=== PATIENT | female | born 1950 ===

== ENCOUNTER 2023-05-14 14:26 | Inpatient (IN) | payer OTHER ==
[~2023-05-14] VITALS: Ht 162.6 cm; Wt 70.8 kg
[2023-05-16] MEDS ORDERED: CHILDREN'S ASPI81 MG PO (15:25)
[2023-05-16] MEDS ORDERED: ALTACE5 MG PO (15:26)
[2023-05-16] MEDS ORDERED: OMEPRAZOLE-BIC1 EAC1 PO (15:26)
[2023-05-16] MEDS ORDERED: PEPCID40 MG PO (15:26)
[2023-05-16] MEDS ORDERED: LIPITOR20 MG PO (15:27)
[2023-05-16] MEDS ORDERED: ALLERGY RELIE15.8 ML NASAL (15:27)
[2023-05-16] MEDS ORDERED: SYMBICORT 16010.2 GM IH (15:27)
[2023-05-16] MEDS ORDERED: PROAIR RESPICL90 MCG IH (15:27)
[2023-05-22 20:51] LABS: HEMATOCRIT 34.3 % (36.0-45.00); HEMOGLOBIN 11.3 g/dL (12.0-15.00); MEAN CELL VOLUME 81.5 fL (80.00-100.00); MEAN CORPUSCULAR HEMOGLOBIN 26.8 pg (27.00-32.0); MEAN CORPUSCULAR HGB CONC 32.9 g/dl (32.0-36.0); PLATELET COUNT 345 K/uL (150-450); RED CELL DISTRIBUTION WIDTH 14.3 % (11.5-14.5)
[2023-05-22 21:14] LABS: ALBUMIN 3.4 gm/dL (3.4-5.0); CALCIUM 8.7 mg/dL (8.5-10.1); CREATININE SERUM 0.9 mg/dL (0.55-1.02); GFR 61.37; MAGNESIUM 2.2 mg/dL (1.8-2.4); POTASSIUM 4.73 mEq/L (3.5-5.1)
[2023-05-23 06:47] LABS: ABG PH 7.409 (7.35-7.45); ABG PO2 92.7 mmHg (80-100); ABG pCO2 35.7 mmHg (35-45); BASE EXCESS -1.9 mmol/l; BICARBONATE 22.1 mmol/l (23-25); SaO2 97.2 %; Tco2 23.2 mmol/l
[2023-05-23 06:48] LABS: allen test SATISFACTORY; o2 21 %; puncture site RADIAL RIGHT
[2023-05-23 07:27] LABS: HEMATOCRIT 29.2 % (36.0-45.00); HEMOGLOBIN 10.1 g/dL (12.0-15.00); MEAN CELL VOLUME 80.6 fL (80.00-100.00); MEAN CORPUSCULAR HEMOGLOBIN 27.8 pg (27.00-32.0); MEAN CORPUSCULAR HGB CONC 34.5 g/dl (32.0-36.0); PLATELET COUNT 282 K/uL (150-450); RED BLOOD COUNT 3.62 M/uL (4.00-6.00); RED CELL DISTRIBUTION WIDTH 14.4 % (11.5-14.5)
[2023-05-23 07:28] LABS: ALBUMIN 3.2 gm/dL (3.4-5.0); CALCIUM 8.8 mg/dL (8.5-10.1); CREATININE SERUM 1.02 mg/dL (0.55-1.02); GFR 53.12; MAGNESIUM 2.1 mg/dL (1.8-2.4); PHOSPHOROUS 3.4 mg/dL (2.5-4.9); POTASSIUM 4.93 mEq/L (3.5-5.1)
[2023-05-24 08:10] LABS: CALCIUM 8.3 mg/dL (8.5-10.1); CREATININE SERUM 0.89 mg/dL (0.55-1.02); GFR 62.17; MAGNESIUM 2.5 mg/dL (1.8-2.4); PHOSPHOROUS 2.8 mg/dL (2.5-4.9); POTASSIUM 4.24 mEq/L (3.5-5.1)
[2023-05-24 08:51] LABS: HEMOGLOBIN 8.5 g/dL (12.0-15.00); MEAN CELL VOLUME 80.2 fL (80.00-100.00); MEAN CORPUSCULAR HEMOGLOBIN 27.8 pg (27.00-32.0); PLATELET COUNT 238 K/uL (150-450); RED BLOOD COUNT 3.05 M/uL (4.00-6.00); RED CELL DISTRIBUTION WIDTH 14.6 % (11.5-14.5)
[2023-05-24 08:52] LABS: HEMATOCRIT 24.4 % (36.0-45.00)
[2023-05-25 07:40] LABS: HEMATOCRIT 31.2 % (36.0-45.00); HEMOGLOBIN 10.8 g/dL (12.0-15.00); MEAN CELL VOLUME 80.6 fL (80.00-100.00); MEAN CORPUSCULAR HEMOGLOBIN 27.8 pg (27.00-32.0); MEAN CORPUSCULAR HGB CONC 34.5 g/dl (32.0-36.0); PLATELET COUNT 246 K/uL (150-450); RED BLOOD COUNT 3.87 M/uL (4.00-6.00); RED CELL DISTRIBUTION WIDTH 14.6 % (11.5-14.5)
[2023-05-25 08:25] LABS: ALBUMIN 2.9 gm/dL (3.4-5.0); CREATININE SERUM 0.73 mg/dL (0.55-1.02); GFR 78.15; MAGNESIUM 2.2 mg/dL (1.8-2.4); PHOSPHOROUS 2.3 mg/dL (2.5-4.9); POTASSIUM 4.21 mEq/L (3.5-5.1)
[2023-05-25 15:35] LABS: HEMOGLOBIN 12.4 g/dL (12.0-15.00); MEAN CELL VOLUME 83.7 fL (80.00-100.00); MEAN CORPUSCULAR HGB CONC 33.4 g/dl (32.0-36.0); PLATELET COUNT 245 K/uL (150-450); RED BLOOD COUNT 4.42 M/uL (4.00-6.00); RED CELL DISTRIBUTION WIDTH 14.8 % (11.5-14.5)
[2023-05-27] MEDS ORDERED: AMOX1TAB5 PO (08:41)
[2023-05-27] MEDS ORDERED: PEPCID AC20 MG PO (08:41)
[2023-05-27] MEDS ORDERED: ZOFRAN8 MG PO (08:41)
[2023-05-27] MEDS ORDERED: DICY20TA PO (08:42)
== END 2023-05-27 10:13 | disposition home or self-care (01) | DRG 331 ==
LOC: O/R 05-22 09:59 → SURG 05-22 10:45 → O/R 05-22 15:31 → SURH 05-22 19:02
PROVIDERS: Internal Medicine Geriatric Medicine; ADMIT Surgery; ATTEND Surgery
PROC: 0DBP4ZZ Excision of Rectum, Percutaneous Endoscopic Approach (ICD-10-PCS; 2023-05-22)
PROC: 07BC4ZX Excision of Pelvis Lymphatic, Percutaneous Endoscopic Approach, Diagnostic (ICD-10-PCS; 2023-05-22)
PROC: 0DTN4ZZ Resection of Sigmoid Colon, Percutaneous Endoscopic Approach (ICD-10-PCS; principal; 2023-05-22 10:45)
DX: C18.7 Malignant neoplasm of sigmoid colon (principal); R59.0 Localized enlarged lymph nodes; D50.0 Iron deficiency anemia secondary to blood loss (chronic); K21.9 Gastro-esophageal reflux disease without esophagitis; I11.9 Hypertensive heart disease without heart failure

== ENCOUNTER 2023-07-03 06:09 | Day surgery (SDC) | payer OTHER ==
[~2023-07-03] VITALS: Ht 162.6 cm; Wt 71.2 kg
[~2023-07-03 06:09] MED LIST: ALLERGY RELIE15.8 ML NASAL; ALTACE5 MG PO; AMOX1TAB5 PO; CHILDREN'S ASPI81 MG PO; DICY20TA PO; LIPITOR20 MG PO; OMEPRAZOLE-BIC1 EAC1 PO; PEPCID AC20 MG PO; PEPCID40 MG PO; PROAIR RESPICL90 MCG IH; SYMBICORT 16010.2 GM IH; ZOFRAN8 MG PO
[2023-07-03] MEDS ORDERED: TRAM1TAB98 PO (08:06)
== END 2023-07-03 11:40 | disposition home or self-care (01) ==
LOC: CIR.AMB 06:09
PROVIDERS: ATTEND Surgery
DX: C18.7 Malignant neoplasm of sigmoid colon (principal); Z20.822 Contact with and (suspected) exposure to COVID-19

== ENCOUNTER 2024-05-10 05:03 | Day surgery (SDC) | payer OTHER ==
[2024-04-28 10:32] LABS: HEMATOCRIT 36.8 % (36.0-45.00); HEMOGLOBIN 12.4 g/dL (12.0-15.00); MEAN CELL VOLUME 84.6 fL (80.00-100.00); MEAN CORPUSCULAR HEMOGLOBIN 28.6 pg (27.00-32.0); MEAN CORPUSCULAR HGB CONC 33.8 g/dl (32.0-36.0); PLATELET COUNT 262 K/uL (150-450); RED BLOOD COUNT 4.35 M/uL (4.00-6.00); RED CELL DISTRIBUTION WIDTH 13.7 % (11.5-14.5)
[2024-04-28 10:54] LABS: INR 1.01; PARTIAL THROMBOPLASTIN TIME 26.1 SECONDS (22.0-34.0)
[2024-04-28 10:59] LABS: ALBUMIN 3.9 gm/dL (3.4-5.0); BILIRUBIN TOTAL 0.4 mg/dL (0.3-1.2); CALCIUM 9.3 mg/dL (8.5-10.1); CREATININE SERUM 0.75 mg/dL (0.55-1.02); GFR 75.54; GLOBULINA 3.4 G/DL (2.4-3.5); POTASSIUM 4.81 mEq/L (3.5-5.1); TOTAL PROTEIN 7.3 gm/dL (6.4-8.2)
[~2024-05-10 05:03] MED LIST changes: +ADULT LOW DOSE81 M1; +TRAM1TAB98 PO
[2024-05-10] MEDS ORDERED: TRAM1TAB98 PO (17:45)
[2024-05-10] MEDS ORDERED: BUPIVACAINE HCL 30 ML VIAL IJ ONE (18:15)
[2024-05-10] MEDS ORDERED: CEFAZOLIN SODIUM 1,000 MG VIAL IV SCH (18:15)
[2024-05-10] MEDS ORDERED: LIDOCAINE HCL 1%/EPINEPHRINE 20ML VIAL IJ ONE (18:15)
== END 2024-05-10 19:45 | disposition home or self-care (01) ==
LOC: CIR.AMB 05:03
PROVIDERS: ATTEND Surgery
DX: T82.594A Other mechanical complication of infusion catheter, initial encounter (principal); C18.7 Malignant neoplasm of sigmoid colon